=== PATIENT | female | born 1985 | race Caucasian/White ===

== ENCOUNTER 2021-08-13 07:23 | Emergency (ER) | payer SELFPAY ==
[~2021-08-13] VITALS: Ht 167.7 cm; Wt 63.5 kg
[~2021-08-13 07:23] MED LIST: CLIN300C3 PO; IBP800T PO; PENI500T PO; TRAM-21 PO; TRAZ50TA67 PO; TRM50T PO
[2021-08-13 07:40] LABS: CLARITY,URINE CLOUDY; COLOR,URINE YELLOW
[2021-08-13 07:41] LABS: BACTERIA,URINE LARGE /HPF; BILIRUBIN,URINE NEGATIVE (NEGATIVE); GLUCOSE, URINE (UA) NEGATIVE (NEGATIVE); KETONES,URINE NEGATIVE (NEGATIVE); LEUKOCYTE ESTERASE ,URINE 3+ (NEGATIVE); NITRITE,URINE NEGATIVE (NEGATIVE); PROTEIN,URINE TRACE (NEGATIVE); TRICHOMONAS,URINE LARGE /HPF
--- NOTE | 2021-08-13 07:42 | ED GI ---
General Chief Complaint: - Reproductive Stated Complaint: BLADDER PAIN Source of Information: Patient Exam Limitations: No Limitations History of Present Illness Date Seen by Provider: Aug 13, 2021 Time Seen by Provider: 07:26 Initial Comments 36-year-old female with past medical history of chronic interstitial cystitis coming in due to suprapubic pain that she says is consistent with interstitial cystitis. The pain is constant, burning, and associated with urinary frequency. She says she had to go urinate at least 20 times last night. No blood in her urine. LMP was 1 and half weeks ago. Denies any vaginal discharge otherwise. This is been ongoing for over 10 years, she is had multiple procedures to in still medications in her bladder to try to help with it. Typically the only thing that helps is tramadol she says but she is out of a prescription. [place] urologist is in [place], and she has not called him recently. This most recent episode has been going on for a couple months, but was worse overnight. Denies any associated symptoms such as fever, significant abdominal pain, naus ea, vomiting, diarrhea, weakness, numbness, chest pain, shortness of breath, rash, or any other concerns. Allergies and Home Medications Allergies Coded Allergies: No Known Drug Allergies (Unverified , 11/25/12) Patient Home Medication List Home Medication List Reviewed: Yes Clindamycin Hcl (Cleocin Hcl) 300 Mg Capsule, 1 EACH PO QID Prescribed by: TRUDY GREEN on 05/06/14 1006 Ibuprofen (Motrin) 800 Mg Tab, 800 MG PO Q8HR PRN Prescribed by: LOURDES CHENG on 11/25/12 1901 Metronidazole (Metronidazole) 500 Mg Tablet, 500 MG PO BID Prescribed by: KWASI BELL on 08/13/21 0748 Penicillin V Potassium (Pen-Vee K) 500 Mg Tablet, Unknown Dose PO BID, (Reported) Entered as Reported by: RACHID TRAVIS on 05/06/14 0939 Tramadol HCl (Tramadol HCl) 50 Mg Tablet, 50 MG PO Q6H PRN for PAIN Prescribed by: KWASI BELL on 08/13/21 0744 Tramadol Hcl (Ultram) 50 Mg Tablet, 50 MG PO Q4H Prescribed by: TRUDY GREEN on 05/06/14 1006 Review of Systems Review of Systems Constitutional: No chills, No fever EENTM: No Blurred Vision Respiratory: Denies Cough Cardiovascular: Denies Chest Pain Gastrointestinal: Denies Abdominal Pain Genitourinary: Burning Musculoskeletal: no symptoms reported Skin: no symptoms reported Psychiatric/Neurological: No Symptoms Reported Endocrine: No Symptoms Reported Hematologic/Lymphatic: No Symptoms Reported All Other Systems Reviewed Negative Unless Noted: Yes Past Izpbxau-Vmphhb-Yzgemx Hx Past Medical History Surgeries: No Family Medical History No Pertinent Family Hx Physical Exam Vital Signs Vital Signs - First Documented 08/13/21 07:26 Temp 36.2 Pulse 123 Resp 19 B/P (MAP) 138/101 (113) O2 Delivery Room Air Capillary Refill : Height/Weight/BMI Height: 5'6" Weight: 140lbs. oz. [id number]; BMI Method:Stated General Appearance: WD/WN, no apparent distress HEENT: PERRL/EOMI, normal ENT inspection, pharynx normal Neck: non-tender, full range of motion, supple, normal inspection Respiratory: chest non-tender, lungs clear, normal breath sounds, no respiratory distress, no accessory muscle use Cardiovascular: regular rate, rhythm, no edema, no murmur Gastrointestinal: normal bowel sounds, non tender, soft; No distended, No guarding, No rebound Extremities: normal range of motion, non-tender, normal inspection, no pedal edema, no calf tenderness, normal capillary refill Back: normal inspection, no CVA tenderness Neurologic/Psychiatric: no motor/sensory deficits, alert, normal mood/affect Skin: warm/dry Lymphatic: no adenopathy Progress/Results/Core Measures Results/Orders Lab Results Laboratory Tests Test 08/13/21 07:29 Range/Units Urine Color YELLOW Urine Clarity CLOUDY Urine pH .0 5-9 Urine Specific [place] 1.020 1.016-1.022 Urine Protein TRACE H NEGATIVE Urine Glucose (UA) NEGATIVE NEGATIVE Urine Ketones NEGATIVE NEGATIVE Urine Nitrite NEGATIVE NEGATIVE Urine Bilirubin NEGATIVE NEGATIVE Urine Urobilinogen 0.2 < = 1.0 MG/DL Urine Leukocyte Esterase 3+ H NEGATIVE Urine RBC (Auto) TRACE-I H NEGATIVE Urine RBC 2-5 H /HPF Urine WBC 5-10 H /HPF Urine Squamous Epithelial Cells 10-25 H /HPF Urine Renal Epithelial Cells NONE /HPF Urine Crystals NONE /LPF Urine Bacteria LARGE H /HPF Urine Casts NONE /LPF Urine Mucus LARGE H /LPF Urine Trichomonas LARGE H /HPF Urine Culture Indicated YES Urine Test NEGATIVE NEGATIVE My Orders Orders - KWASI BELL MD Hcg,Qualitative Urine (08/13/21 07:35) Ua Culture If Indicated (08/13/21 07:35) Tramadol Tablet (Ultram Tablet) (08/13/21 07:45) Ibuprofen Tablet (Motrin Tablet) (08/13/21 07:45) Urine Culture (08/13/21 07:29) Medications Given in ED Current Medications Medications Dose Ordered Sig/Kamaljit Route Start Time Stop Time Status Last Admin Dose Admin Ibuprofen 600 mg ONCE ONCE PO 08/13/21 07:45 08/13/21 07:46 DC 08/13/21 07:46 600 MG Tramadol HCl 50 mg ONCE ONCE PO 08/13/21 07:45 08/13/21 07:46 DC 08/13/21 07:46 50 MG Vital Signs/I&O 08/13/21 07:26 Temp 36.2 Pulse 123 Resp 19 B/P (MAP) 138/101 (113) O2 Delivery Room Air Progress Progress Note : Progress Note 36-year-old female with above history coming in due to dysuria and urinary frequency that she says is consistent with interstitial cystitis. ABCs were intact and vitals were stable on presentation although she is mildly tachycardic. She says that she is very anxious and in a lot of pain and was up all night, and her heart rate is normally elevated she says during that time. She was given tramadol as well as ibuprofen for pain. Urine was sent for urinalysis as well as urine test. Most importantly, her abdominal exam is reassuring and she has no significant tenderness. Most of her discomfort is with urination. Urine with trichomonas present and test was negative. I believe she is stable for discharge with outpatient follow-up with her urologist. She was sent home with strict return precautions. Sent script to treat trich to her pharmacy. Departure Impression Primary Impression: Interstitial cystitis Additional Impression: Trichomonal cystitis and urethritis Disposition: HOME, SELF-CARE Condition: Stable Departure-Patient Inst. Decision time for Depature: 07:49 Referrals: NO,LOCAL PHYSICIAN (PCP/Family) Primary Care Physician Patient Instructions: Bladder Pain Syndrome (Interstitial Cystitis) ED, Trichomoniasis (DC), Sexually-Transmitted Diseases (DC) Add. Discharge Instructions: You do have an infection called trichomonas ASIS which can be transmitted sexually. Please complete the antibiotic, and alert any of your sexual partners that they will also need to complete the same antibiotic course for trichomonas, otherwise you will continue to spread it back and forth. Abstain from sex until you have completed you antibiotics. Please call your urologist regarding your interstitial cystitis pain. If you develop any fever or any other concerns then come back to the ED or call your urologist sooner. Scripts Metronidazole (Metronidazole) 500 Mg Tablet 500 MG PO BID for 7 Days, #14 TAB Prov: KWASI BELL MD 08/13/21 Tramadol HCl (Tramadol HCl) 50 Mg Tablet 50 MG PO Q6H PRN for PAIN for 4 Days, #16 TAB 0 Refills Prov: KWASI BELL MD 08/13/21 Work/School Note: Work Release Form Date Seen in the Emergency Department: Aug 13, 2021 Return to Work: Aug 15, 2021 Restrictions: No Restrictions KWASI BELL MD Aug 13, 2021 07:42
[2021-08-13] MEDS ORDERED: TRM50T PO (07:43)
[2021-08-13] MEDS ORDERED: IBUPROFEN 600 MG (MOTRIN) TAB PO ONE (07:45)
[2021-08-13] MEDS ORDERED: METR-145 PO (07:48)
[2021-08-13 07:55] VITALS: BP 134/79
== END 2021-08-13 07:55 | disposition home or self-care (01) ==
LOC: EDUNIT# 07:23 → ER FS 07:25
DX: N30.10 Interstitial cystitis (chronic) without hematuria (principal); A59.03 Trichomonal cystitis and urethritis
CPT/HCPCS: 81000; 84703; 87088; 99283

== ENCOUNTER 2021-08-16 10:14 | Emergency (ER) | payer SELFPAY ==
[~2021-08-16] VITALS: Ht 167 cm; Wt 70.0 kg
[~2021-08-16 10:14] MED LIST changes: +METR-145 PO
[2021-08-16 10:48] LABS: BILIRUBIN,URINE NEGATIVE (NEGATIVE); CLARITY,URINE SL CLOUDY; COLOR,URINE YELLOW; GLUCOSE, URINE (UA) NEGATIVE (NEGATIVE); KETONES,URINE NEGATIVE (NEGATIVE); LEUKOCYTE ESTERASE ,URINE 3+ (NEGATIVE); NITRITE,URINE NEGATIVE (NEGATIVE); PROTEIN,URINE NEGATIVE (NEGATIVE)
[2021-08-16 10:56] LABS: HEMATOCRIT 42 % (35-52); HEMOGLOBIN 13.7 g/dL (11.5-16.0); LYMPHOCYTES % (AUTO) 27 % (12-44); MEAN CORPUSCULAR HEMOGLOBIN 30 pg (25-34); MEAN CORPUSCULAR HGB CONC 33 g/dL (32-36); MEAN CORPUSCULAR VOLUME 90 fL (80-99); MEAN PLATELET VOLUME 9.8 fL (9.0-12.2); MONOCYTES % (AUTO) 7 % (0-12); NEUTROPHILS % (AUTO) 63 % (42-75); PLATELET COUNT 338 10^3/uL (130-400); WHITE BLOOD COUNT 6.7 10^3/uL (4.3-11.0)
[2021-08-16 10:57] LABS: BASOPHILS % (AUTO) 1 % (0-10); EOSINOPHILS # (AUTO) 0.1 10^3/uL (0.0-0.3); EOSINOPHILS % (AUTO) 2 % (0-10); LYMPHOCYTES # (AUTO) 1.8 X 10^3 (1.0-4.0); MONOCYTES # (AUTO) 0.5 X 10^3 (0.0-1.0); NEUTROPHILS # (AUTO) 4.2 X 10^3 (1.8-7.8)
[2021-08-16 10:58] LABS: BACTERIA,URINE MODERATE /HPF; RBC,URINE RARE /HPF
[2021-08-16] MEDS ORDERED: cefTRIAXone 1,000 MG VIAL IM ONE (11:00)
[2021-08-16 11:04] LABS: AMPHETAMINE SCREEN, URINE NEGATIVE (NEGATIVE); BARBITURATE SCREEN URINE NEGATIVE (NEGATIVE); BENZODIAZEPINES SCREEN URINE NEGATIVE (NEGATIVE); CANNABINOID SCREEN, URINE NEGATIVE (NEGATIVE); COCAINE SCREEN URINE NEGATIVE (NEGATIVE); METHADONE STAT NEGATIVE (NEGATIVE); METHAMPHETAMINE SCREEN URINE S NEGATIVE (NEGATIVE); OPIATE SCREEN URINE NEGATIVE (NEGATIVE); OXYCODONE STAT NEGATIVE (NEGATIVE); PROPOXYPHENE STAT NEGATIVE (NEGATIVE); TRICYCLIC ANTIDEPRESSANTS SCRE NEGATIVE (NEGATIVE)
[2021-08-16 11:20] LABS: ALKALINE PHOSPHATASE 90 U/L (40-136); BILIRUBIN,TOTAL 0.9 MG/DL (0.1-1.0); BUN/CREATININE RATIO 7; CALCIUM 9.5 MG/DL (8.5-10.1); CARBON DIOXIDE 23 MMOL/L (21-32); CHLORIDE 104 MMOL/L (98-107); CREATININE SERUM 0.71 MG/DL (0.60-1.30); GFR ESTIMATED 94; GLUCOSE 104 MG/DL (70-105); POTASSIUM 3.8 MMOL/L (3.6-5.0); SODIUM 141 MMOL/L (135-145)
[2021-08-16 11:21] LABS: ALANINE AMINOTRANSFERASE 44 U/L (0-55); ALBUMIN 4.5 GM/DL (3.2-4.5); TOTAL PROTEIN 8.2 GM/DL (6.4-8.2)
--- NOTE | 2021-08-16 12:47 | ED Psychosocial ---
General Chief Complaint: Psych/Social Disorder Stated Complaint: PSYCH EVAL: SUICIDAL Nursing Triage Note: PT REPORTS SHE HAS HAD THOUGHTS OF SUICIDE BY CUTTING FOR THE LAST 3-4 DAYS. SHE IS A [employer]. SHE CALLED HER FSR AND TOLD THEM SHE NEEDED TO GO TO THE HOSPITAL BC SHE HAS AN ANKLE BRACELET ON. SHE STATES SHE FEELS ALL ALONE. Source: patient Exam Limitations: no limitations History of Present Illness Date Seen by Provider: Aug 16, 2021 Time Seen by Provider: 10:15 Initial Comments Patient is a 36-year-old female with history of mental illness and alcoholism who presents with thoughts of self-mutilation and suicidal ideation. Patient released from sn[facility] 4 days ago and is currently residing in a hotel pending outpatient placement for alcohol treatment. She states she is staying in the hotel by herself is unable to leave due to an ankle bracelet. She feels isolated and is unable to contact friends or families due to lack of resources. She denies specific plan to kill herself but states she does have thoughts and wishes to resume self cutting. Currently denies hallucinations, paranoia, and homicidal ideation. Complains of chronic bladder pain. No other acute medical symptoms or complaints Severity: moderate Associated Symptoms: other Allergies and Home Medications Allergies Coded Allergies: No Known Drug Allergies (Unverified , 11/25/12) Patient Home Medication List Home Medication List Reviewed: Yes Clindamycin Hcl (Cleocin Hcl) 300 Mg Capsule, 1 EACH PO QID Prescribed by: TRUDY GREEN on 05/06/14 1006 Ibuprofen (Motrin) 800 Mg Tab, 800 MG PO Q8HR PRN Prescribed by: LOURDES CHENG on 11/25/12 1901 Metronidazole (Metronidazole) 500 Mg Tablet, 500 MG PO BID Prescribed by: KWASI BELL on 08/13/21 0748 Penicillin V Potassium (Pen-Vee K) 500 Mg Tablet, Unknown Dose PO BID, (Reported) Entered as Reported by: RACHID TRAVIS on 05/06/14 0939 Tramadol HCl (Tramadol HCl) 50 Mg Tablet, 50 MG PO Q6H PRN for PAIN Prescribed by: KWASI BELL on 08/13/21 0744 Tramadol Hcl (Ultram) 50 Mg Tablet, 50 MG PO Q4H Prescribed by: TRUDY GREEN on 05/06/14 1006 Review of Systems Constitutional: see HPI EENTM: see HPI Respiratory: see HPI Cardiovascular: see HPI Gastrointestinal: see HPI Genitourinary: see HPI Musculoskeletal: see HPI Skin: see HPI Psychiatric/Neurological: See HPI All Other Systems Reviewed Negative Unless Noted: Yes Past Wzjhgum-Lekrby-Srfqsq Hx Patient Social History Tobacco Use?: Yes Tobacco type used: Cigarettes Smoking Status: Current Everyday Smoker Use of E-Cig and/or Vaping dev: No Substance use?: No Alcohol Use?: No Pt feels they are or have been: No Past Medical History Surgery/Hospitalization HX: BIPOLAR Surgeries: No Family Medical History No Pertinent Family Hx Physical Exam Vital Signs - First Documented 08/16/21 10:33 Temp 36.7 Pulse 129 Resp 20 B/P (MAP) 110/78 (89) Pulse Ox 99 O2 Delivery Room Air Capillary Refill : Less Than 3 Seconds Height, Weight, BMI Height: 5'6" Weight: 140lbs. oz. [id number]; 25.00 BMI Method:Stated General Appearance: WD/WN, no apparent distress HEENT: PERRL/EOMI, pharynx normal Respiratory: chest non-tender, lungs clear, no respiratory distress Cardiovascular: normal peripheral pulses, regular rate, rhythm Gastrointestinal: soft Neurologic/Psychiatric: lace roller II-XII nml as tested, no motor/sensory deficits, alert, oriented x 3 Behavior/Eye Contact: good eye contact, normal speech Thoughts/Hallucinations: normal thought pattern, no apparent hallucination Skin: normal color Lymphatic: no adenopathy Progress/Results/Core Measures Results/Orders Lab Results Laboratory Tests Test 08/16/21 10:27 08/16/21 10:42 08/16/21 15:00 Range/Units Urine Color YELLOW Urine Clarity SL CLOUDY Urine pH 8.0 5-9 Urine Specific [place] 1.015 L 1.016-1.022 Urine Protein NEGATIVE NEGATIVE Urine Glucose (UA) NEGATIVE NEGATIVE Urine Ketones NEGATIVE NEGATIVE Urine Nitrite NEGATIVE NEGATIVE Urine Bilirubin NEGATIVE NEGATIVE Urine Urobilinogen 1.0 < = 1.0 MG/DL Urine Leukocyte Esterase 3+ H NEGATIVE Urine RBC (Auto) TRACE-I H NEGATIVE Urine RBC RARE /HPF Urine WBC 10-25 H /HPF Urine Squamous Epithelial Cells 5-10 /HPF Urine Crystals NONE /LPF Urine Bacteria MODERATE H /HPF Urine Casts NONE /LPF Urine Mucus SMALL H /LPF Urine Culture Indicated YES Urine Opiates Screen NEGATIVE NEGATIVE Urine Oxycodone Screen NEGATIVE NEGATIVE Urine Methadone Screen NEGATIVE NEGATIVE Urine Propoxyphene Screen NEGATIVE NEGATIVE Urine Barbiturates Screen NEGATIVE NEGATIVE Ur Tricyclic Antidepressants Screen NEGATIVE NEGATIVE Urine Phencyclidine Screen NEGATIVE NEGATIVE Urine Amphetamines Screen NEGATIVE NEGATIVE Urine Methamphetamines Screen NEGATIVE NEGATIVE Urine Benzodiazepines Screen NEGATIVE NEGATIVE Urine Cocaine Screen NEGATIVE NEGATIVE Urine Cannabinoids Screen NEGATIVE NEGATIVE White Blood Count 6.7 4.3-11.0 10^3/uL Red Blood Count 4.63 3.80-5.11 10^6/uL Hemoglobin 13.7 11.5-16.0 g/dL Hematocrit 42 35-52 % Mean Corpuscular Volume 90 80-99 fL Mean Corpuscular Hemoglobin 30 25-34 pg Mean Corpuscular Hemoglobin Concent 33 32-36 g/dL Red Cell Distribution Width 13.2 10.0-14.5 % Platelet Count 338 130-400 10^3/uL Mean Platelet Volume 9.8 9.0-12.2 fL Immature Granulocyte % (Auto) 0 % Neutrophils (%) (Auto) 63 42-75 % Lymphocytes (%) (Auto) 27 12-44 % Monocytes (%) (Auto) 7 0-12 % Eosinophils (%) (Auto) 2 0-10 % Basophils (%) (Auto) 1 0-10 % Neutrophils # (Auto) 4.2 1.8-7.8 X 10^3 Lymphocytes # (Auto) 1.8 1.0-4.0 X 10^3 Monocytes # (Auto) 0.5 0.0-1.0 X 10^3 Eosinophils # (Auto) 0.1 0.0-0.3 10^3/uL Basophils # (Auto) 0.0 0.0-0.1 10^3/uL Immature Granulocyte # (Auto) 0.0 0.0-0.1 10^3/uL Sodium Level 141 135-145 MMOL/L Potassium Level 3.8 3.6-5.0 MMOL/L Chloride Level 104 98-107 MMOL/L Carbon Dioxide Level 23 21-32 MMOL/L Anion Gap 14 5-14 MMOL/L Blood Urea Nitrogen 5 L 7-18 MG/DL Creatinine 0.71 0.60-1.30 MG/DL Estimat Glomerular Filtration Rate 94 BUN/Creatinine Ratio 7 Glucose Level 104 70-105 MG/DL Calcium Level 9.5 8.5-10.1 MG/DL Corrected Calcium 9.1 8.5-10.1 MG/DL Total Bilirubin 0.9 0.1-1.0 MG/DL Aspartate Amino Transf (AST/SGOT) 31 5-34 U/L Alanine Aminotransferase (ALT/SGPT) 44 0-55 U/L Alkaline Phosphatase 90 40-136 U/L Total Protein 8.2 6.4-8.2 GM/DL Albumin 4.5 3.2-4.5 GM/DL Serum Alcohol < 10 <10 MG/DL My Orders Orders - OLEKSANDR RODRIGES DO Cbc With Automated Diff (08/16/21 10:36) Comprehensive Metabolic Panel (08/16/21 10:36) Urine Bedside (08/16/21 10:36) Ekg Tracing (08/16/21 10:36) Alcohol (08/16/21 10:36) Urinalysis (08/16/21 10:36) Drug Screen Stat (Urine) (08/16/21 10:36) Tramadol Tablet (Ultram Tablet) (08/16/21 10:45) Urine Culture (08/16/21 10:27) Covid 19 Inhouse Test (08/16/21 15:05) Influenza A And B By Pcr (08/16/21 15:05) Medications Given in ED Current Medications Medications Dose Ordered Sig/Kamaljit Route Start Time Stop Time Status Last Admin Dose Admin Tramadol HCl 100 mg ONCE ONCE PO 08/16/21 10:45 08/16/21 10:46 DC 08/16/21 10:56 100 MG Vital Signs/I&O 08/16/21 08/16/21 10:33 16:55 Temp 36.7 36.1 Pulse 129 84 Resp 20 18 B/P (MAP) 110/78 (89) 120/62 Pulse Ox 99 99 O2 Delivery Room Air Room Air Blood Pressure Mean: 89 Departure Communication (Admissions) EKG: Normal sinus rhythm, no acute ST-T wave changes. Patient medically stable.: Chronic bladder pain addressed. Patient screened by mental health services. Recommendations are for inpatient placement. Patient accepted at [facility] in [place]. Impression Primary Impression: Mood disorder Disposition: XF SHT-TRM HOSP Condition: Stable Transfer Method of Transfer: EMS Departure-Patient Inst. Referrals: NO,LOCAL PHYSICIAN (PCP/Family) Primary Care Physician OLEKSANDR RODRIGES DO Aug 16, 2021 12:47
[2021-08-16 16:55] VITALS: BP 120/62
== END 2021-08-16 18:05 | disposition short-term general hospital (02) ==
LOC: EDUNIT# 10:14 → ER FS 10:17
DX: F39 Unspecified mood [affective] disorder (principal); F17.210 Nicotine dependence, cigarettes, uncomplicated; Z20.822 Contact with and (suspected) exposure to COVID-19
CPT/HCPCS: 36415; 80053; 80306; 81000; 84703; 85025; 87088; 87636; 93005; 99283; G0480; 80320

== ENCOUNTER 2021-09-27 06:54 | Emergency (ER) | payer SELFPAY ==
[~2021-09-27] VITALS: Ht 167.4 cm; Wt 72.7 kg
[2021-09-27 07:26] LABS: BILIRUBIN,URINE NEGATIVE (NEGATIVE); CLARITY,URINE CLEAR; COLOR,URINE YELLOW; GLUCOSE, URINE (UA) NEGATIVE (NEGATIVE); KETONES,URINE NEGATIVE (NEGATIVE); LEUKOCYTE ESTERASE ,URINE NEGATIVE (NEGATIVE); NITRITE,URINE NEGATIVE (NEGATIVE); PH,URINE 6.5 (5-9); PROTEIN,URINE NEGATIVE (NEGATIVE)
[2021-09-27 07:33] LABS: BACTERIA,URINE NEGATIVE /HPF
[2021-09-27 07:39] LABS: AMPHETAMINE SCREEN, URINE NEGATIVE (NEGATIVE); BARBITURATE SCREEN URINE NEGATIVE (NEGATIVE); BENZODIAZEPINES SCREEN URINE NEGATIVE (NEGATIVE); CANNABINOID SCREEN, URINE NEGATIVE (NEGATIVE); COCAINE SCREEN URINE NEGATIVE (NEGATIVE); HCG,QUALITATIVE URINE NEGATIVE (NEGATIVE); METHADONE STAT NEGATIVE (NEGATIVE); METHAMPHETAMINE SCREEN URINE S NEGATIVE (NEGATIVE); OPIATE SCREEN URINE NEGATIVE (NEGATIVE); OXYCODONE STAT NEGATIVE (NEGATIVE); PROPOXYPHENE STAT NEGATIVE (NEGATIVE); TRICYCLIC ANTIDEPRESSANTS SCRE NEGATIVE (NEGATIVE)
[2021-09-27] MEDS ORDERED: hydrOXYzine (VISTARIL/ATARAX) 25 MG capsule/tablet PO ONE (07:45)
[2021-09-27 07:48] LABS: BASOPHILS % (AUTO) 0 % (0-10); EOSINOPHILS % (AUTO) 0 % (0-10); HEMATOCRIT 42 % (35-52); HEMOGLOBIN 13.7 g/dL (11.5-16.0); LYMPHOCYTES # (AUTO) 1.3 10^3/uL (1.0-4.0); LYMPHOCYTES % (AUTO) 19 % (12-44); MEAN CORPUSCULAR HEMOGLOBIN 29 pg (25-34); MEAN CORPUSCULAR HGB CONC 33 g/dL (32-36); MEAN CORPUSCULAR VOLUME 90 fL (80-99); MEAN PLATELET VOLUME 9.3 fL (9.0-12.2); MONOCYTES # (AUTO) 0.5 10^3/uL (0.0-1.0); MONOCYTES % (AUTO) 8 % (0-12); NEUTROPHILS % (AUTO) 72 % (42-75); PLATELET COUNT 424 10^3/uL (130-400); WHITE BLOOD COUNT 6.9 10^3/uL (4.3-11.0)
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
[2021-09-27 07:57] LABS: CHLORIDE 109 MMOL/L (98-107); POTASSIUM 3.5 MMOL/L (3.6-5.0); SODIUM 143 MMOL/L (135-145)
[2021-09-27 07:58] LABS: ALBUMIN 4.7 GM/DL (3.2-4.5)
[2021-09-27 07:59] LABS: CALCIUM 9.5 MG/DL (8.5-10.1)
[2021-09-27 08:00] LABS: GLUCOSE 89 MG/DL (70-105); TOTAL PROTEIN 8.4 GM/DL (6.4-8.2)
[2021-09-27 08:01] LABS: CARBON DIOXIDE 20 MMOL/L (21-32)
[2021-09-27 08:02] LABS: BILIRUBIN,TOTAL 0.8 MG/DL (0.1-1.0)
[2021-09-27 08:04] LABS: ALKALINE PHOSPHATASE 64 U/L (40-136); CREATININE SERUM 0.78 MG/DL (0.60-1.30); GFR ESTIMATED 102
[2021-09-27 08:05] LABS: BUN/CREATININE RATIO 8
[2021-09-27 08:07] LABS: ALANINE AMINOTRANSFERASE 20 U/L (0-55); SALICYLATE < 5.0 MG/DL (5.0-20.0)
[2021-09-27 08:12] LABS: ACETAMINOPHEN < 10 UG/ML (10-30)
[2021-09-27 08:27] LABS: TSH (THYROID ANALYZER) 0.71 UIU/ML (0.35-4.94)
[2021-09-27] MEDS ORDERED: ALPRAZolam 0.25 MG (XANAX) TAB PO ONE (13:30)
[2021-09-27 20:38] VITALS: BP 115/84
== END 2021-09-27 20:38 ==
LOC: EDUNIT# 06:54 → ER 06:59
DX: T14.91XA Suicide attempt, initial encounter (principal); F31.9 Bipolar disorder, unspecified; Z72.0 Tobacco use; Z20.822 Contact with and (suspected) exposure to COVID-19; X78.9XXA Intentional self-harm by unspecified sharp object, initial encounter
CPT/HCPCS: 80053; 80306; 81000; 84443; 84703; 85025; 87636; 93005; 99283; G0480 ×3; 36415; 80320; 80329